=== PATIENT | male | born 1965 | race African-American/Black ===

== ENCOUNTER 2021-12-05 07:15 | Day surgery (SDC) | payer OTHER ==
[~2021-12-05] VITALS: Ht 167.6 cm; Wt 94.8 kg
[~2021-12-05 07:15] MED LIST: AMLODIPINE BESY10 MG PO; CARDURA4 MG PO; CITRACAL + D3 MAXIMU PO; CLOBETASOL0.051 EX; DOCQLACE100 MG; EUCERI1 EX; GABAPENTIN250 MG/5 M PO; HUMULIN N100 UNIT/M; HYDROCHLORO25 MG/TAB PO; INSTA GLUCOSE; INSTA-GLUCOS40 % OR; INSTA-GLUCOS40 % PO; ISOSORBIDE DINI30 MG PO; LEVAQUIN500 MG PO; LIPITOR40 M1 PO; MAXZIDE PO; MELOXICAM15 MG PO; MELOXICAM7.5 MG PO; METFORMIN HCL1000 MG PO; METFORMIN850 MG PO; METOPROL TAR50 MG PO; NITROSTAT0.4 MG SL; NORVASC5 MG PO; OMEPRAZOLE20 M3; PRILOSEC20 MG/CAP PO; ROBAXIN-750750 MG PO; SIMVASTATIN40 MG PO; TAMSULOSIN HCL0.4 MG PO; TERAZOSIN2 MG PO; TRI-BUFF ASA325 M2 PO; TYLENOL325 M2 PO; ULTRAM50 M1 PO; VICODIN1 TAB PO
[2021-12-05] MEDS ORDERED: TORADOL PO (10:36)
[2021-12-05 11:51] VITALS: BP 154/93
== END 2021-12-05 12:10 | disposition designated cancer center or children's hospital (05) | DRG 989 ==
LOC: ORM 07:15
PROVIDERS: ATTEND Surgery
PROC: 0WQF0ZZ Repair Abdominal Wall, Open Approach (ICD-10-PCS; principal; 2021-12-05)
DX: M62.08 Separation of muscle (nontraumatic), other site (principal); K42.9 Umbilical hernia without obstruction or gangrene; K43.9 Ventral hernia without obstruction or gangrene; E11.9 Type 2 diabetes mellitus without complications; I10 Essential (primary) hypertension; Z79.84 Long term (current) use of oral hypoglycemic drugs
CPT/HCPCS: C9290